=== PATIENT | female | born 1985 | race African-American/Black ===

== ENCOUNTER 2017-06-26 18:12 | Emergency (ER) | payer BC, OTHER ==
[~2017-06-26] VITALS: Ht 175.3 cm; Wt 85.7 kg
[~2017-06-26 18:12] MED LIST: NKM; NORCO 5-325 TA1 EACH ORAL
[2017-06-26] MEDS ORDERED: SPIRONOLACTONE1 EACH ORAL (18:30)
[2017-06-26] MEDS ORDERED: HYDROcodone/Acetamin 7.5/325 tab ORAL ONE (18:45)
--- NOTE | 2017-06-26 19:05 | Emergency Room Report ---
History of Present Illness General Chief Complaint: Lower Extremity Injury Source: Patient Present Illness HPI 32-year-old female presents to the emergency department complaining of 8 out of 10 in severity localized left ankle pain since last night. Patient states that she woke up in the middle the night could've bathroom and upon putting weight on her left foot she experienced pain. Patient reports swelling she states that the day prior she was doing a very intense [employer] workout and thinks she may have strained it then. Patient denies appreciable trauma or fall otherwise. Denies numbness tingling or loss of sensation or gross motor movements of the extremities, incontinence of bowel or bladder. Denies CP, Palpitations, LOC, AMS, dizziness, Changes in Vision, Sensation, paresthesias, or a sudden severe headache. Allergies: Coded Allergies: PENICILLINS (Unverified Allergy, Unknown, 10/02/15) COPIED FROM UNCODED SECTION Patient History Past Medical History: see triage record Past Surgical History: none Pertinent Family History: none Last Menstrual Period: 06/03/17 Now: No : 0 Para: 0 Reviewed Nursing Documentation: PMH: Agreed, PSxH: Agreed Nursing Documentation-PMH Past Medical History: No Stated History Review of Systems All Other Systems: negative except mentioned in HPI Physical Exam Vital Signs Date Time Temp Pulse Resp B/P (MAP) Pulse Ox O2 Delivery O2 Flow Rate FiO2 06/26/17 18:23 98.2 82 16 128/80 100 Room Air 98.2 Sp02 EP Interpretation: reviewed, normal General Appearance: no apparent distress, alert, GCS 15, non-toxic Head: normocephalic, atraumatic ENT: hearing grossly normal, normal voice Neck: full range of motion Respiratory: lungs clear, normal breath sounds, speaking full sentences Cardiovascular #1: regular rate, rhythm, normal capillary refill Musculoskeletal: back normal, gait/station normal - compensatory. , normal range of motion, swelling - left lateral and ant. ankle, tender - TTP to the left lateral and anterior ankle/foot. swelling noted. no increased laxity. Neurologic: alert, oriented x3, responsive, motor strength/tone normal, sensory intact, speech normal, grossly normal Psychiatric: judgement/insight normal Skin: normal color, no rash, warm/dry, well hydrated Medical Decision Making PA Attestation Dr. Duarte is my supervising physician whom pt. management has been discussed with. Diagnostic Impression: Primary Impression: Ankle sprain Qualified Codes: S93.402A - Sprain of unspecified ligament of left ankle, initial encounter Additional Impression: Contusion of foot, left Qualified Codes: S90.32XA - Contusion of left foot, initial encounter ER Course 32-year-old female presents to the emergency department complaining of 8 out of 10 in severity localized left ankle pain since last night. Patient states that she woke up in the middle the night could've bathroom and upon putting weight on her left foot she experienced pain. Patient reports swelling she states that the day prior she was doing a very intense [employer] workout and thinks she may have strained it then. Patient denies appreciable trauma or fall otherwise. Denies numbness tingling or loss of sensation or gross motor movements of the extremities, incontinence of bowel or bladder. Denies CP, Palpitations, LOC, AMS, dizziness, Changes in Vision, Sensation, paresthesias, or a sudden severe headache. Ddx considered but are not limited to Fracture, dislocation, contusion, Sprain/ Strain/Spasm. Vital signs: are WNL, pt. is afebrile H&PE are most consistent with musculoskeletal injury will perform imaging to r/ o fractures/dislocations. ORDERS: - X-ray Left ankle 3 views and Left Foot 3 views - negative for fx, Dislocation, or significant soft tissue injury, per preliminary read in ED, and signed by CARLOTTA Doherty, my supervising physician has reviewed, and agrees with my interpretation. ED INTERVENTIONS: - [facility] [place] PO -Hector wrap applied by telecommunications technician. Pt. remains neurovascularly intact. -Patient is provided with crutches and instructed on their use DISCHARGE: At this time pt. is stable for d/c to home. Will provide printed patient care instructions, and any necessary prescriptions. Care plan and follow up instructions have been discussed with the patient prior to discharge. Other X-Ray Diagnostic Results Other X-Ray Diagnostic Results #1: X-Ray ordered: Left ANkle # of Views/Limited Vs Complete: 3 View Indication: Pain EP Interpretation: Yes CARLOTTA Xray: Interpretation reviewed, by supervising MD, and agrees with findings. Interpretation: no dislocation, no fractures Impression: No acute disease - soft tissue swelling no acute fractures. Electronically Signed by: Margarita Doherty PA-C Other X-Ray Diagnostic Results #2: X-Ray ordered: Left Foot # of Views/Limited Vs Complete: 3 View Indication: Pain EP Interpretation: Yes PA Xray: Interpretation reviewed, by supervising MD, and agrees with findings. Interpretation: no dislocation, no fractures, other - soft tissue swelling no acute fractures. Impression: No acute disease Electronically Signed by: Margarita Doherty PA-C Last Vital Signs Date Time Temp Pulse Resp B/P (MAP) Pulse Ox O2 Delivery O2 Flow Rate FiO2 06/26/17 18:44 98.2 06/26/17 18:23 82 16 128/80 100 Room Air Disposition: HOME, SELF-CARE Condition: Stable Scripts Ibuprofen* (MOTRIN*) 600 Mg Tablet 600 MG ORAL THREE TIMES A DAY, #30 TAB 0 Refills Prov: Margarita Doherty 06/26/17 Patient Instructions: Ankle Sprain Additional Instructions: Take medications as directed. Follow up with a Primary Care Provider in 3-5 days, even if your symptoms have resolved. --Please review list of primary care clinics, if you do not already have a primary care provider Return sooner to ED if new symptoms occur, or current symptoms become worse. - Please note that this Emergency Department Report was dictated using [employer] serviceman technology software, occasionally this can lead to erroneous entry secondary to interpretation by the dictation equipment. Margarita Doherty Jun 26, 2017 19:05
[2017-06-26] MEDS ORDERED: IBUPROFEN600 MG ORAL (19:06)
[2017-06-26 19:13] VITALS: BP 128/80
--- NOTE | 2017-06-27 09:51 | Diagnostic Imaging Report ---
Indication: Pain Technique: XRAY Foot Complete L Comparison: None Findings: There is no evidence of acute fracture or dislocation. Lisfranc alignment of the foot is preserved. There is a small os perineum. No focal soft tissue defect is appreciated radiographically. No radiopaque foreign body is seen. Impression: No evidence of acute fracture or dislocation.
--- NOTE | 2017-06-27 09:53 | Diagnostic Imaging Report ---
Indication: Pain Technique: XRAY Ankle Compl Min 3v L Comparison: None Findings: There is no evidence of acute fracture. Ankle mortise is intact on these nonstress views. No focal soft tissue abnormality is appreciated. No radiopaque foreign body is seen. No significant ankle joint effusion. Impression: No evidence of acute fracture or dislocation.
== END 2017-06-26 19:30 | disposition home or self-care (01) ==
LOC: EMR 19:30
DX: S93.402A Sprain of unspecified ligament of left ankle, initial encounter (principal); S90.32XA Contusion of left foot, initial encounter; W06.XXXA Fall from bed, initial encounter; Y92.9 Unspecified place or not applicable; Z88.0 Allergy status to penicillin
CPT/HCPCS: 99284